=== PATIENT | male | born 1985 | race Caucasian/White ===

== ENCOUNTER 2025-06-07 14:08 | Inpatient (IN) | payer SELFPAY ==
[~2025-06-07] VITALS: Ht 170.2 cm; Wt 93.4 kg
[2025-06-07 14:15] VITALS: O2SAT 98
[2025-06-07 14:40] LABS: CLARITY URINE CLOUDY (CLEAR); COLOR URINE DARK YELLOW (YELLOW); GLUCOSE URINE NEGATIVE (NEGATIVE); KETONES URINE 1+ (NEGATIVE); LEUKOCYTE ESTERASE URINE NEGATIVE (NEGATIVE); NITRITE URINE NEGATIVE (NEGATIVE); OCCULT BLOOD URINE 2+ (NEGATIVE); PH URINE >=9.0 (4.5-8.0); PROTEIN URINE 1+ (NEGATIVE); SPECIFIC GRAVITY URINE 1.028 (1.005-1.030); UROBILINOGEN URINE 1.0 E.U./dL (0.2-1.0)
[2025-06-07 14:59] LABS: AMORPHOUS SEDIMENT URINE 1+ /lpf
[2025-06-07 15:00] LABS: SQUAMOUS EPITHELIAL CELL URINE RARE /lpf (RARE/1+)
[2025-06-07 15:01] LABS: BACTERIA URINE 3+; RBC URINE 25-50 /hpf (0-2); WBC URINE 0-2 /hpf (0-2)
[2025-06-07 15:08] LABS: BASOPHILS % 0.4 % (0.0-2.0); EOSINOPHILS % 0.3 % (0.0-5.0); HEMATOCRIT. 43.1 % (42.0-52.0); HEMOGLOBIN. 14.5 g/dL (14.0-18.0); LYMPHOCYTES % 11.8 % (20.0-50.0); MEAN PLATELET VOLUME 7.5 fl (7.4-10.4); MONOCYTES % 7.3 % (2.0-8.0); NEUTROPHILS % 80.2 % (40.0-76.0); PLATELET 317 x1000/uL (130-400); RED BLOOD CELL COUNT 4.83 mill/uL (4.7-6.1); RED CELL DISTRIBUTION WIDTH 13.6 % (11.6-14.6)
[2025-06-07 15:40] LABS: CREATININE 1.4 mg/dL (0.6-1.3)
[2025-06-07 15:41] LABS: UREA NITROGEN BLOOD 12.0 mg/dL (9-23)
[2025-06-07] MEDS: KETOROLAC 15MG/ML VIAL IM ONE (15:47)
[2025-06-07] MEDS: ONDANSETRON 4MG ODT PO ONE (15:47)
[2025-06-07 18:40] VITALS: BP 135/87; PULSE 83; RESP 18; TEMP 36.7; O2SAT 99
[2025-06-07] MEDS ORDERED: CLONIDINE 0.1MG TABLET PO PRN (19:30)
[2025-06-07] MEDS ORDERED: GUAIFENESIN 200MG/10ML SUGAR FREE UDC PO PRN (19:30)
[2025-06-07] MEDS ORDERED: ACETAMINOPHEN 325MG TABLET PO PRN (19:30)
[2025-06-07] MEDS ORDERED: IPRATROPIUM/ALBUTEROL 0.5-3(2.5)MG/3ML NEB HHN PRN (19:30)
[2025-06-07] MEDS ORDERED: DOCUSATE SODIUM 100MG CAPSULE PO PRN (19:30)
[2025-06-07] MEDS ORDERED: MAGNESIUM/ALUMINUM HYDROXIDE/SIMETHICONE 30ML UDC PO PRN (19:30)
[2025-06-07 20:00] VITALS: BP 135/87; PULSE 83; RESP 18; TEMP 36.7; O2SAT 99
[2025-06-07] MEDS: DEXT 5%/0.45% NACL 1000ML 1,000 ML IV SCH (20:20)
[2025-06-07] MEDS: TAMSULOSIN HCL 0.4MG SR CAPSULE PO SCH (20:20)
[2025-06-07] MEDS: ENOXAPARIN 30MG/0.3ML SYR SUBCUT SCH (20:24)
[2025-06-07] MEDS: ACETAMINOPHEN 325MG TABLET PO PRN (20:27)
[2025-06-08] VITALS (7 sets, daily range): BP systolic 127–135; BP diastolic 71–87; PULSE 77–83; RESP 16–18; TEMP 36.4–36.9; O2SAT 97
[2025-06-08] MEDS: KETOROLAC 15MG/ML VIAL IV PRN (00:25)
[2025-06-08 00:44] LABS: TROPONIN I HIGH SENSITIVITY 21 ng/L (3.0-53)
[2025-06-08] MEDS: ONDANSETRON HCL 4MG/2ML INJ IV PRN (04:50)
[2025-06-08 09:00] LABS: BASOPHILS % 0.4 % (0.0-2.0); EOSINOPHILS % 1.6 % (0.0-5.0); HEMATOCRIT. 39.8 % (42.0-52.0); HEMOGLOBIN. 13.8 g/dL (14.0-18.0); LYMPHOCYTES % 20.5 % (20.0-50.0); MEAN PLATELET VOLUME 7.9 fl (7.4-10.4); MONOCYTES % 14.1 % (2.0-8.0); NEUTROPHILS % 63.4 % (40.0-76.0); PLATELET 267 x1000/uL (130-400); RED BLOOD CELL COUNT 4.50 mill/uL (4.7-6.1); RED CELL DISTRIBUTION WIDTH 13.5 % (11.6-14.6)
[2025-06-08 09:21] LABS: T4 FREE 1.01 ng/dL (0.89-1.76)
[2025-06-08 09:24] LABS: BILIRUBIN TOTAL 1.5 mg/dL (0.1-1.0); CREATININE 1.5 mg/dL (0.6-1.3); PROTEIN TOTAL 6.5 g/dL (6.0-8.3); TRIGLYCERIDE 154 mg/dL (0-150); UREA NITROGEN BLOOD 12 mg/dL (9-23)
[2025-06-08 09:25] LABS: LDL CHOLESTEROL 130 mg/dL (5-100)
[2025-06-08 09:26] LABS: ASPARTATE AMINOTRANSFERASE 30 IU/L (<34); BILIRUBIN DIRECT 0.4 mg/dL (<=3.0); PHOSPHORUS 3.5 mg/dL (2.5-4.9)
[2025-06-08 09:29] LABS: TROPONIN I HIGH SENSITIVITY 16 ng/L (3.0-53)
[2025-06-08 09:45] LABS: *AMPHETAMINES SCREEN URINE NEGATIVE (NEGATIVE); *BARBITURATES SCREEN URINE NEGATIVE (NEGATIVE); *BENZODIAZEPINES SCREEN URINE NEGATIVE (NEGATIVE); *COCAINE SCREEN URINE NEGATIVE (NEGATIVE); CANNABINOID URINE SCREEN NEGATIVE (NEGATIVE); ECSTASY MDMA SCREEN URINE NEGATIVE (NEGATIVE); METHADONE URINE SCREEN NEGATIVE (NEGATIVE); OPIATES URINE SCREEN NEGATIVE (NEGATIVE); PHENCYCLIDINE URINE SCREEN NEGATIVE (NEGATIVE)
[2025-06-08] MEDS: MULTIVITAMINS,THER W-MINERALS TABLET PO SCH (10:36)
[2025-06-08] MEDS: PANTOPRAZOLE SODIUM 40 MG/VIAL IV SCH (10:37)
[2025-06-08 19:37] LABS: TROPONIN I HIGH SENSITIVITY 11 ng/L (3.0-53)
[2025-06-09] VITALS: BP 114/69; PULSE 72; RESP 18; TEMP 36.7; O2SAT 98
[2025-06-09 04:00] VITALS: BP 117/73; PULSE 73; RESP 16; TEMP 36.7; O2SAT 98
[2025-06-09 08:00] VITALS: BP 116/58; PULSE 73; RESP 18; TEMP 36.8; O2SAT 100
[2025-06-09 08:51] LABS: BASOPHILS % 0.4 % (0.0-2.0); EOSINOPHILS % 2.9 % (0.0-5.0); HEMATOCRIT. 40.4 % (42.0-52.0); HEMOGLOBIN. 13.9 g/dL (14.0-18.0); LYMPHOCYTES % 26.5 % (20.0-50.0); MEAN PLATELET VOLUME 7.8 fl (7.4-10.4); MONOCYTES % 12.6 % (2.0-8.0); NEUTROPHILS % 57.6 % (40.0-76.0); PLATELET 275 x1000/uL (130-400); RED BLOOD CELL COUNT 4.54 mill/uL (4.7-6.1); RED CELL DISTRIBUTION WIDTH 13.4 % (11.6-14.6)
[2025-06-09 09:10] LABS: CREATININE 1.3 mg/dL (0.6-1.3); UREA NITROGEN BLOOD 11 mg/dL (9-23)
[2025-06-09] MEDS ORDERED: TAMS-54 PO (10:28)
[2025-06-09 11:01] VITALS: BP 116/58; PULSE 73; RESP 18; TEMP 97.8
== END 2025-06-09 13:00 | disposition home or self-care (01) | DRG 465 ==
LOC: ER 14:08 → EDBEDREQ 17:57 → EDBEDREQTM 17:57 → ENRESERV 18:15 → 6EST 18:44
PROVIDERS: ADMIT Internal Medicine; ATTEND Internal Medicine
DX: N20.2 Calculus of kidney with calculus of ureter (principal); N17.9 Acute kidney failure, unspecified; N18.9 Chronic kidney disease, unspecified; N13.9 Obstructive and reflux uropathy, unspecified; R73.9 Hyperglycemia, unspecified; Z79.899 Other long term (current) drug therapy
CPT/HCPCS: 36415; 74176; 80048; 80061; 80076; 80305; 81003; 82550; 82553; 83036; 83605; 83735; 84100; 84145; 84439; 84443; 84484; 85025; 93005; 99285; A4606; J1650; J1885; J2405; J2470; Q0162